=== PATIENT | male | born 1975 | race Caucasian/White ===

== ENCOUNTER 2021-05-16 16:40 | Emergency (ER) | payer MEDICAID ==
[~2021-05-16] VITALS: Ht 160 cm; Wt 95.3 kg
[2021-05-16 16:42] VITALS: BP 130/80
--- NOTE | 2021-05-16 16:48 | NUR ---
Pt ambulated to ER bed 12 with a steady gait.
--- NOTE | 2021-05-16 17:03 | NUR ---
45 MALE WITH C/O LEFT TESTICULAR PAIN X 2 WEEKS THAT RANDOMLY STARTED. PT STATES PAIN HAS STARTED TO WORSEN OVER THE PAST WEEK. PT STATED PAIN IS SHARP AND RADIATES FROM L TESTICULAR TO ENTIRE LOWER ABDOMEN. PT STATED HE WENT TO URGENT CARE, BUT THE MEDICATIONS GIVEN HAS NOT HELPED AND WAS TOLD TO COME TO ED IF PAIN CONTUINED. PMH: HLD, HEART PROBLEM NKA
--- NOTE | 2021-05-16 17:50 | NUR ---
US BEDSIDE WITH PTKaylin MADRIGAL RN IN ROOM TO SUPERVISE
--- NOTE | 2021-05-16 19:11 | NUR ---
GAVE REPORT TO ANDREA ZIMMER. TRANSFER OF CARE GIVEN
[2021-05-16 20:00] VITALS: BP 103/69
--- NOTE | 2021-05-16 20:00 | NUR ---
Patient discharged with v/s stable. Written and verbal after care instructions given and explained. Patient alert, oriented and verbalized understanding of instructions. Ambulatory with WITH STEADY GAIT. All questions addressed prior to discharge. ID band removed. Patient advised to follow up with PMD. Opportunity to ask questions provided and answered.
== END 2021-05-16 20:00 | disposition home or self-care (01) ==
LOC: MED 16:40
DX: N50.812 Left testicular pain (principal)
CPT/HCPCS: 76870; 81002; 99284